=== PATIENT | female | born 1945 | race Caucasian/White ===

== ENCOUNTER 2017-03-20 08:24 | Outpatient (CLI) | payer MEDICARE, BC ==
--- OUTSIDE RECORDS SUMMARY | 2017-03-20 08:27 | XMS | Clinical Summary ---
:1945 Author Organization [facility] Address [address] [place] [address] Phone Care Team Providers Name Role Phone , Primary Care Provider Unavailable Allergies Not on File Current Medications Not on file Active Problems Not on file Social History Tobacco Use Types Packs/Day Years Used Date Never Assessed Sex Assigned at Date Recorded Not on file Last Filed Vital Signs Not on file Plan of Treatment Not on file Results Not on filefrom Last 3 Months
--- NOTE | 2017-03-21 14:36 | PET ---
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 COMPARISON: None. TECHNIQUE: IV injection F-18 Fluorodeoxyglucose (FDG) dose: 11.6 mCi Whole body PET and attenuation-correction CT performed from vertex of scalp to bottom of feet. FINDINGS: SUV (standard uptake value) numbers given are maximum SUV's: The approximately 12 x 9 x 6 mm noncalcified pulmonary nodule at the far anterior aspect of the supe rior segment of right lower lobe, abutting the undersurface of the right minor fissure, has avid FDG uptake, with SUV of 8.4. No other hypermetabolic pulmonary nodules are identified, but the other pu lmonary nodule at the posterior basilar segment left lower lobe on the CT of 03/03/17 would be too s mall for PET. There is no other focus of suspiciously hypermetabolic activity elsewhere in the chest, head, neck, and abdomen. There is a large exophytic cyst protruding inferiorly from the lower pole of the right kidney. There is a cluster of surgical clips in the right groin, adjacent to the right common femora l and proximal superficial femoral arteries and veins, associated with irregular soft tissue density material in this region. The maximum SUV is 2.3, mildly elevated compared to background activity, b ut below the threshold usually considered for malignancy. This is favored to represent postsurgical scar tissue. At midline in the region of the anus, there is a tiny focus of mildly increased uptake with maximum SUV of 3.3. This may or may not correspond to the site of the resected melanoma mention ed in the history. At the periphery of the images, there is a focus of increased uptake in the deep soft tissues betwee n the proximal aspects of the right radius and ulna with SUV of 3.4. No hypermetabolic foci identified in the bilateral lower extremities. There is a unilateral right-sided breast implant. IMPRESSION: 1. The 12 mm pulmonary nodule located in the superior segment of the right lower lobe is hypermetab olic, and suspicious for malignant neoplasm, either metastatic melanoma or primary lung cancer. Giulia noma metastasis is favored. 2. A focus of hypermetabolic activity in the proximal right forearm, near the elbow. Uncertain whet her this represents a metastatic focus or some type of inflammatory pathology. It does not appear to be artifact. Further evaluation with MRI of the proximal forearm is recommended with and without co ntrast. LUCIA Sharma POS: [facility]
== END 2017-03-20 08:25 | disposition home or self-care (01) ==
LOC: PET 08:24
PROVIDERS: ATTEND Internal Medicine Hematology & Oncology
DX: D03.5 Melanoma in situ of trunk (principal); R91.1 Solitary pulmonary nodule
CPT/HCPCS: 78816; A9552

== ENCOUNTER 2017-06-29 07:21 | Outpatient (CLI) | payer MEDICARE, BC ==
[2017-06-29] MEDS ORDERED: Iopamidol 370 76% 100 ML VIAL ONE (09:00)
--- NOTE | 2017-06-29 10:09 | CT ---
CT OF CHEST AND ABDOMEN AND PELVIS WITH CONTRAST: Date: 06/29/17 CLINICAL HISTORY: Melanoma. FINDINGS: Slight enlargement of pulmonary nodule of the right lower lobe at 13.0 mm in size. 11.0 mm on prior e xam. The previously described round, 5.0 mm, left lower lobe nodule is stable. There is a new lobular nodule of the medial right lower lobe measuring 6.0 mm. Punctate subpleural nodularity bilaterally i s otherwise grossly stable. No effusion. No evidence of adenopathy. Redemonstration of prominent size right renal cyst. Punctate hypoattenuating foci of each kidney are redemonstrated, too small to furt her characterize. Liver, spleen, pancreas, and adrenal glands are stable. Stable absence of right rec tus abdominus. There is colonic diverticulosis. No additional significant interval detrimental change . IMPRESSION: 1. Slight interval enlargement of dominant right lower lobe pulmonary nodule. 2. New subcentimeter medial right lower lobe nodule. 3. Stable 5.0 mm nodule left lower lobe. POS: [facility]
== END 2017-06-29 07:22 | disposition home or self-care (01) ==
LOC: SCSCT 07:21
PROVIDERS: ATTEND Internal Medicine Medical Oncology
DX: D03.5 Melanoma in situ of trunk (principal); R91.8 Other nonspecific abnormal finding of lung field; Z92.3 Personal history of irradiation; Z98.890 Other specified postprocedural states
CPT/HCPCS: 71260; 74177

== ENCOUNTER 2017-08-10 07:43 | Outpatient (CLI) | payer MEDICARE, BC ==
[2017-08-10] MEDS ORDERED: Iopamidol 370 76% 100 ML VIAL ONE (09:00)
--- NOTE | 2017-08-10 10:46 | CT ---
CT OF THE CHEST AND ABDOMEN AND PELVIS UTILIZING IV CONTRAST: Date: 08/10/17 INDICATION: History of melanoma with lung metastatic disease. COMPARISON: CT of the chest, abdomen and pelvis dated 06/29/17, 03/03/17, and 09/30/16. Comparison made with CT a bdomen and pelvis dated 08/27/11. Comparison also made with MRI of the thoracic spine dated 07/03/03. FINDINGS: The large subpleural pulmonary nodule within the right lower lobe on image 34 of series 5 now measure s 1.5 cm, where it measured up to 2.0 cm on the most recent comparison on 06/29/17. The previously documented nodule within the medial right lower lobe on image 53 of series 5 now measu res 9.0 mm, where as it previously measured 7.0 mm. Multiple smaller subcentimeter pulmonary nodules within the left lung are stable. Smaller subcentimet er nodules within the right upper lobe are stable. No new pulmonary nodules are identified. No pathologically enlarged mediastinal, hilar, or axillary lymphadenopathy is evident. Postsurgical c hange of prior bilateral mastectomy with right breast implant placement left breast free flap reconst ruction is stable to the prior exam. No focal hepatic lesion is evident. Small, 9.0 mm, left adrenal nodule has been stable since 2012 and is likely benign. There is a 6.9 cm cyst involving the lower pole of the right kidney, which is stab le. Small, subcentimeter cysts within both kidneys are stable. Spleen is normal. No lymphadenopathy o r free fluid is evident. Pancreas is unremarkable. Visualized unopacified large and small bowel reveal no definite acute abnormality. There is scattered colonic diverticula involving the colon. Visualized appendix appears within normal limits. Small bony hemangioma is present within T10. There is a small, focal, well circumscribed lucency with in the left lateral aspect of the T2 vertebra on image 10 of series 3 which has been stable since the CT evaluation of the chest, abdomen, and pelvis dated 09/30/16. This was also present on the PET CT evaluation of 03/20/17 with no associated hypermetabolic uptake. This may reflect a small subchondral cyst that has developed adjacent to the costovertebral articulation. No additional suspicious osteol ytic or osteoblastic lesion is identified. There is scattered degenerative and osteoarthritic change. IMPRESSION: 1. Findings of mixed response to therapy involving the scattered pulmonary metastatic lesions. The l argest index nodule within the right lower lobe has actually decreased in size, now measuring up to 1 5.0 mm. The small medial right lower lobe pulmonary nodule identified as a new lesion on the most rec ent comparison has slightly increased in size. Other subcentimeter pulmonary nodules within the remai tosha portions of the lung are stable. 2. No evidence of metastatic disease within the visualized abdomen. 3. Small oval well circumscribed lucency within the left lateral aspect of the T2 vertebra has been stable on multiple comparison examinations with no associated hypermetabolic uptake on a recent PET C T dated 03/20/17. This is likely a small, benign lucent lesion, possibly related to a subchondral cys t from the adjacent costovertebral joint. There is a benign-appearing bony hemangioma within T10. No suspicious osseous metastatic disease is evident. 4. Stable chronic findings as above. POS: [facility]
== END 2017-08-10 07:44 | disposition home or self-care (01) ==
LOC: SCSCT 07:43
PROVIDERS: ATTEND Internal Medicine Medical Oncology
DX: C78.00 Secondary malignant neoplasm of unspecified lung (principal); R91.8 Other nonspecific abnormal finding of lung field
CPT/HCPCS: 71260; 74177

== ENCOUNTER 2017-10-11 07:16 | Outpatient (CLI) | payer MEDICARE, BC ==
--- NOTE | 2017-10-11 09:49 | CT ---
CT CHEST WITH CONTRAST: Date: 10/11/17 HISTORY: D03.51, C78.0, lung mets. COMPARISON: CT chest, abdomen, and pelvis dated 08/10/17. FINDINGS: Unilateral right-sided breast implant is intact. Prior left flap reconstruction. Left axillary lymph nodes measure up to 7.0 mm in short axis, unchanged from the comparison examinati on. The previously described lytic process in the left T2 vertebral body is unchanged, likely benign process. Moderate degenerative changes of both glenohumeral joints. No other suspicious lytic or shane tic lesions in the skeleton. No compression fracture. No rib fracture. Left periaortic lymph nodes are similar in size. The nodule within the right major fissure measures up to 1.0 cm in transverse dimension, previously 1 5.0 mm. This is decreased in size. Nodule in the right lung base measures up to 14.0 mm in transverse dimension, previously 8.0 mm. Cluster of approximately four nodules in the left lung base are unchan ged. Mildly enlarging nodule within the anterior segment of the left lower lobe measuring up to 7.0 m m in transverse dimension, previously 5.0 mm. Left perifissural 3.0 mm nodule appears slightly increa sed in size. There is a solid nodule in the left upper lobe with a peripheral halo concerning for a h emorrhagic or metastatic focus, series 3, image 30. The solid component on today's examination measur es approximately 4.0 mm, previously approximately 3.0 mm. Perifissural nodule along the left major fi ssure near the apex is mildly increased in size. There is a nodule which is enlarging in the left irene g apex measuring 7.0 mm in transverse dimension, previously 3.0 mm. Right lung apex nodule appears ne w and measures 4.0 x 6.0 mm. None of these nodules, besides the dominant right major fissure nodule, have decreased in size. IMPRESSION: 1. Mixed response with interval size increase of numerous pulmonary nodules, although the largest no dule in the right major fissure actually decreasing in size and may represent a lymph node. 2. Unchanged appearance of benign lucent process in the left vertebral body. 3. No evidence of osseous metastatic disease. POS: [facility]
== END 2017-10-11 07:17 | disposition home or self-care (01) ==
LOC: SCSCT 07:16
PROVIDERS: ATTEND Internal Medicine Medical Oncology
DX: D03.5 Melanoma in situ of trunk (principal); C78.00 Secondary malignant neoplasm of unspecified lung; R91.8 Other nonspecific abnormal finding of lung field
CPT/HCPCS: 71260; 82565

== ENCOUNTER 2017-11-22 08:45 | Outpatient (CLI) | payer MEDICARE, BC ==
[2017-11-22] MEDS ORDERED: Iopamidol 370 76% 100 ML VIAL ONE (09:00)
--- NOTE | 2017-11-22 14:32 | CT ---
CT CHEST AND ABDOMEN AND PELVIS WITH IV CONTRAST: TECHNIQUE: Multiple axial tomograms were obtained through the chest, abdomen, and pelvis with IV enhancement. INDICATION: Melanoma of anus with right groin and lung mets. COMPARISON: Comparison is made to CT of chest and abdomen 08/10/17 and chest, abdomen, and pelvis 06/29/17. Also co mpared to a CT chest exam of 10/11/17. FINDINGS: CT CHEST: Numerous bilateral pulmonary nodules were again noted. In the right lung, these numerous nodules appear stable in appearance. An index nodule in the fissur e on the right is stable at approximately 1 cm in the axial plane. A larger nodule in the posterior right medial lung base is also stable measured at approximately 1.2 cm. A nodule in the left apical region measuring 7-8 mm appears stable. Another medial nodule in the lef t upper lobe measuring 6-7 mm is stable. There are other smaller scattered nodules with a 6 mm nodul e in the posterior left lung base, stable. Mediastinum unremarkable. The right breast prosthesis unchanged. There is an enlarged left axillary lymph node which measures 1.4 cm. This is a stable finding. There are other nonspecific axillary l ymph nodes bilaterally which are stable. No mediastinal adenopathy. No evidence of osseous lesion. IMPRESSION: Stable chest CT findings. CT ABDOMEN AND PELVIS: The liver, spleen, and pancreas are unremarkable. Adrenal glands and kidneys unremarkable. The larg e cyst from the inferior right kidney which measures up to 7 cm is stable. Bowel loops unremarkable. Diverticulosis of the sigmoid and left colon again noted. No evidence of adenopathy. Nonspecific paraaortic lymph nodes appear stable. Uterus and adnexa unremarkable. Degenerative changes at both hips again noted. No osseous lesion. Numerous surgical clips in the right inguinal region again noted. No inguinal adenopathy. IMPRESSION: Stable findings of CT abdomen and pelvis with no evidence of metastasis identified. POS: [facility]
== END 2017-11-22 08:46 | disposition home or self-care (01) ==
LOC: SCSCT 08:45
PROVIDERS: ATTEND Internal Medicine Medical Oncology
DX: C21.0 Malignant neoplasm of anus, unspecified (principal); C43.59 Malignant melanoma of other part of trunk; C78.00 Secondary malignant neoplasm of unspecified lung
CPT/HCPCS: 71260; 74177

== ENCOUNTER 2017-11-26 08:14 | Emergency (ER) | payer MEDICARE, BC ==
[2017-11-26 08:59] LABS: #Lymphocytes 1.5 thou/uL (1.20-3.40); #Monocytes 0.8 thou/uL (0.11-0.59); #Neutrophils 5.6 thou/uL (1.40-6.50); %Basophils 0.3 % (0.0-1.0); %Eosinophils 0.3 % (0.0-10.0); %Lymphocytes 18.7 % (21.0-51.0); %Monocytes 10.1 % (0.0-10.0); %Neutrophils 70.6 % (42.0-75.0); Hemoglobin 8.4 g/dL (12.0-16.0); Mean Corpuscular Hemoglobin 24.6 pg (27.0-31.0); Mean Corpuscular Volume 79.6 fl (81.0-99.0); Mean Platelet Volume 5.6 fL (7.4-10.4); Platelet Count 765 thou/uL (130-400); RBC Distribution Width 14.6 % (11.5-14.5); White Blood Cell (WBC) Count 7.9 thou/uL (4.8-10.8)
[2017-11-26 09:37] LABS: ALT (SGPT) 10 U/L (8-55); AST (SGOT) 16 U/L (5-34); Albumin 3.3 g/dL (3.4-4.8); Alkaline Phosphatase 152 U/L (40-150); Anion Gap 14 mmol/L (10-20); BUN (Urea Nitrogen) 18 mg/dL (9.8-20.1); Bilirubin, Total 0.2 mg/dL (0.2-1.2); Calc. Creatinine Clearance 0 mL/min (70-130); Calcium 8.9 mg/dL (7.8-10.44); Carbon Dioxide 20 mmol/L (23-31); Chloride 101 mmol/L (98-107); Estimated GFR-MDRD 56; Globulin 3.7 g/dL (2.4-3.5); Glucose 105 mg/dL (83-110); Sodium 131 mmol/L (136-145)
[2017-11-26 09:38] LABS: CKMB 0.6 ng/mL (0-6.6); Troponin I Less than 0.010 ng/mL (< 0.028)
--- NOTE | 2017-11-26 09:44 | ULT ---
BILATERAL LOWER EXTREMITY VENOUS DOPPLER ULTRASOUND: Date: 11/26/17 HISTORY: Bilateral lower extremity edema. Patient diagnosed with melanoma of the pelvis and had last immunothe rapy therapy 2 days ago. TECHNIQUE: Morton scale ultrasound with color flow and spectral Doppler imaging of the deep venous systems of the lower extremities was performed bilaterally. FINDINGS: There is good flow, compression, and augmentation noted in the common femoral, femoral, deep femoral, popliteal, posterior tibial, and greater saphenous veins on either side. IMPRESSION: No evidence of deep venous thrombosis in either lower extremity. POS: [facility]
== END 2017-11-26 10:06 | disposition home or self-care (01) ==
LOC: ERS 08:14
DX: R60.0 Localized edema (principal); F32.9 Major depressive disorder, single episode, unspecified; Z79.899 Other long term (current) drug therapy; Z79.82 Long term (current) use of aspirin
CPT/HCPCS: 36415; 80053; 82553; 83880; 84484; 85025; 93005; 93970

== ENCOUNTER 2018-01-07 07:45 | Day surgery (SDC) | payer MEDICARE, BC ==
[2018-01-07] MEDS ORDERED: diphenhydrAMINE 25 MG CAP PO SCH (08:30)
[2018-01-07] MEDS ORDERED: Furosemide 40 MG TAB PO SCH (08:30)
[2018-01-07] MEDS ORDERED: Acetaminophen 500 MG TAB PO SCH (08:30)
[2018-01-07 11:57] LABS: Hemoglobin 8.9 g/dL (12.0-16.0)
[2018-01-07 14:06] VITALS: BP 108/55; TEMP 97.4
== END 2018-01-07 14:07 | disposition home or self-care (01) ==
LOC: ONC/OP 07:45
PROVIDERS: ATTEND Internal Medicine Medical Oncology
DX: D64.9 Anemia, unspecified (principal); Z88.0 Allergy status to penicillin; Z88.8 Allergy status to other drugs, medicaments and biological substances
CPT/HCPCS: 36430; 85014; 85018; 86850; 86900; 86901; P9016

== ENCOUNTER 2018-01-21 07:22 | Outpatient (CLI) | payer MEDICARE, BC ==
--- NOTE | 2018-01-21 12:14 | CT ---
CT CHEST WITH IV CONTRAST: CT ABDOMEN WITH IV CONTRAST: CT PELVIS WITH IV CONTRAST: HISTORY: Melanoma with pulmonary metastases. Metastasis to the left axillary lymph node. Melanoma NC2 of dariusz skin. COMPARISON: 11/22/2017 FINDINGS: A right-sided breast prosthesis is again noted. The 14 mm lymph node in the left axilla is stable. A new 14 mm right axillary lymph node is seen, which previously measured about 10 mm. No mediastinal lymphadenopathy is noted. There is an 18 mm right hilar lymph node, which is new since the last exa m. No pleural or pericardial effusions are seen. Multiple bilateral parenchymal lung nodules are again noted. There has been an interval increase in the size of the right basilar nodule from 13 mm on the previous study to 18 mm on the current exam. The 7 mm nodule in the left upper lobe shows near complete resolution with residual linear density, l ikely scarring. The remainder of the pulmonary nodules are otherwise stable. The liver, spleen, pancreas, and adrenal glands are unremarkable. Bilateral renal cysts are again no greg, with the largest on the right, measuring 7 cm. No calcified gallstones are seen. No free air, free fluid, or periaortic lymphadenopathy is identified. There is sigmoid diverticulosi s. There is no evidence of aneurysmal dilatation of the thoracoabdominal aorta. There are degenerat madelin changes in the thoracolumbar spine. No osteolytic or osteoblastic lesions are seen. The right perianal prominent lymph nodes are stable. The right groin lymph node has enlarged in the interim, measuring 2.7 cm. IMPRESSION: Mixed response to therapy since 11/22/2017. POS: [facility]
== END 2018-01-21 07:23 | disposition home or self-care (01) ==
LOC: SCSCT 07:22
PROVIDERS: ATTEND Internal Medicine Medical Oncology
DX: D03.5 Melanoma in situ of trunk (principal); C78.00 Secondary malignant neoplasm of unspecified lung; C77.3 Secondary and unspecified malignant neoplasm of axilla and upper limb lymph nodes
CPT/HCPCS: 71260; 74177; 82565

== ENCOUNTER 2018-03-10 08:48 | Day surgery (SDC) | payer MEDICARE, BC ==
[2018-03-10] MEDS ORDERED: Sodium Chloride 0.9% 40 ML ONE (09:11)
[2018-03-10] MEDS ORDERED: diphenhydrAMINE 25 MG CAP PO SCH (09:15)
[2018-03-10] MEDS ORDERED: Acetaminophen 500 MG TAB PO SCH (09:15)
[2018-03-10 13:09] LABS: Hemoglobin 8.8 g/dL (12.0-16.0)
[2018-03-10 13:55] VITALS: TEMP 97.5
[2018-03-10 16:12] VITALS: BP 127/74
== END 2018-03-10 16:11 | disposition home or self-care (01) ==
LOC: ONC/OP 08:48
PROVIDERS: ATTEND Internal Medicine Medical Oncology
DX: D64.9 Anemia, unspecified (principal); D69.6 Thrombocytopenia, unspecified; Z88.1 Allergy status to other antibiotic agents
CPT/HCPCS: 36430; 85014; 85018; 86850; 86900; 86901; A4216; P9016

== ENCOUNTER 2018-04-23 13:27 | Inpatient (IN) | payer MEDICARE, BC ==
[2018-04-23] MEDS ORDERED: Morphine 4 MG/ML VIAL ONE (14:32)
[2018-04-23 15:30] LABS: #Eosinphils 0.1 thou/uL (0.0-0.7); #Monocytes 0.4 thou/uL (0.11-0.59); #Neutrophils 4.1 thou/uL (1.40-6.50); %Basophils 0.7 % (0.0-1.0); %Eosinophils 1.2 % (0.0-10.0); %Lymphocytes 29.8 % (21.0-51.0); %Monocytes 6.4 % (0.0-10.0); %Neutrophils 61.9 % (42.0-75.0); Hemoglobin 7.5 g/dL (12.0-16.0); Mean Corpuscular HGB CONC 30.5 g/dL (32.0-36.0); Mean Corpuscular Hemoglobin 25.5 pg (27.0-31.0); Mean Corpuscular Volume 83.6 fL (78.0-98.0); Mean Platelet Volume 5.9 fL (7.4-10.4); Platelet Count 675 thou/uL (130-400); RBC Distribution Width 16.7 % (11.5-14.5); Red Blood Cell (RBC) Count 2.93 mill/uL (4.20-5.40); White Blood Cell (WBC) Count 6.6 thou/uL (4.8-10.8)
[2018-04-23 15:37] LABS: INR-International Normal Ratio 1.1; PTT 39.5 SEC (22.9-36.1)
[2018-04-23 15:49] LABS: ALT (SGPT) 7 U/L (8-55); AST (SGOT) 10 U/L (5-34); Albumin 2.6 g/dL (3.4-4.8); Alkaline Phosphatase 59 U/L (40-150); Anion Gap 10 mmol/L (10-20); BUN (Urea Nitrogen) 21 mg/dL (9.8-20.1); Bilirubin, Total Less than 0.2 mg/dL (0.2-1.2); Calc. Creatinine Clearance 0 mL/min (70-130); Calcium 8.1 mg/dL (7.8-10.44); Carbon Dioxide 24 mmol/L (23-31); Chloride 110 mmol/L (98-107); Estimated GFR-MDRD 62; Globulin 3.1 g/dL (2.4-3.5); Glucose 80 mg/dL (83-110); Protein, Total 5.7 g/dL (6.0-8.3); Sodium 140 mmol/L (136-145)
--- NOTE | 2018-04-23 16:15 | RAD ---
LEFT FEMUR TWO VIEWS: 04/23/18 HISTORY: Pain. There is a displaced left femoral neck fracture. The fracture is more obliquely oriented and more of a subcapital type fracture. The femur is laterally displaced in relation to the femoral head. IMPRESSION: Left femoral neck fracture. POS: [facility]
--- NOTE | 2018-04-23 16:17 | RAD ---
CHEST ONE VIEW: 04/23/18 HISTORY: Preop femur fracture. The heart size is within normal limits. There are atherosclerotic changes of the aorta. The lungs are clear of infiltrates. The bones are demineralized. IMPRESSION: No active intrathoracic disease. POS: [facility]
[2018-04-23] MEDS ORDERED: Ondansetron PF 4 MG/2 ML Vial IVP PRN (17:51)
[2018-04-23] MEDS ORDERED: Dextrose 50% Abboject 50 ML SYRINGE SLOW IVP PRN (17:51)
[2018-04-23] MEDS ORDERED: hydrALAZINE 20 MG/ML VIAL SLOW IVP PRN (17:51)
[2018-04-23] MEDS ORDERED: Dextrose 5% in Water 1,000 ML IV PRN (17:51)
[2018-04-23] MEDS ORDERED: Ondansetron ODT 4 MG TAB PO PRN (17:51)
[2018-04-23] MEDS ORDERED: Morphine 2 MG/ML SYRINGE IVP PRN (17:51)
[2018-04-23] MEDS ORDERED: Acetaminophen 500 MG TAB PO SCH (18:00)
[2018-04-23] MEDS: Acetaminophen 1,000 MG in Premix Bag 1 BAG IVPB SCH (18:46)
[2018-04-23] MEDS: Ketorolac Tromethamine 30 MG/ML VIAL IVP SCH (18:47)
--- NOTE | 2018-04-23 19:56 | HP ---
DATE OF ADMISSION: 04/23/2018 REQUESTING PHYSICIAN: Dr. Begum. ATTENDING PHYSICIAN: Dr. Welch. CONSULTATIONS: Orthopedics, Dr. Colon. HISTORY OF PRESENT ILLNESS: The patient is a 73-year-old female who was transferred here from [facility] in [facility] after she presented there from falling the night before. She was able to self medicate overnight, but her pain became increasingly worse and she was unable to ambulate du e to left hip pain. The patient presented to the Emergency Department there where she underwent eval uation and examination and was noted to have a left subcapital hip fracture, at which time she was tr ansferred to our facility for evaluation for admission Orthopedic examination and of note, patient is an Oncology patient and suffers from chronic anemia and now due to her treatments and she also had a hemoglobin of 7.4. The patient denied any loss of consciousness last night or any syncopal type jessica nts. She states that she just "tripped and fell." ALLERGIES: CIPROFLOXACIN, LEVOFLOXACIN and METRONIDAZOLE. CURRENT MEDICATIONS: Zetia, Synthroid, Remeron, clonazepam, Pepcid, and vitamin E. PAST MEDICAL HISTORY: Metastatic melanoma, depression, hypothyroid. PAST SURGICAL HISTORY: Multiple biopsies and "cancer related surgeries," hemorrhoidectomy, thyroidec freddie, mastectomy and reconstruction surgeries. SOCIAL HISTORY: The patient lives at home with her . She ambulates normally without a walker . She denies drug, tobacco or alcohol use. REVIEW OF SYSTEMS: Ten point review of systems is negative as otherwise stated. PHYSICAL EXAMINATION: VITAL SIGNS: Blood pressure 132/85, heart rate 75, respirations 12, oxygen saturation 99% on room ai r. GENERAL: The patient is resting comfortably in bed. She is awake, alert, and oriented x3. Nomi coma scale 15. The patient does appear pale and somewhat emaciated. HEENT: Head is normocephalic, atraumatic. Eyes: Extraocular movements intact. PERRLA bilaterally. Ears are atraumatic without discharge. Nose is atraumatic without discharge. Oropharynx is clear. NECK: Nontender. Trachea is midline. No JVD. CHEST: Clear to auscultation with good inspiratory and expiratory effort. HEART: Regular rate and rhythm. ABDOMEN: Soft, flat, nontender with active bowel sounds. PELVIC: Stable. EXTREMITIES: The patient is tender to palpation to her left hip consistent with her fracture. The p atvanesa also has a mass lesion on her right groin area, which she states is one of her metastatic lesi ons of melanoma. EXTREMITIES: Neurovascularly intact x4. Capillary refill is less than 3 seconds. Pulses are 2+. BACK: By report is atraumatic and nontender. LABORATORY DATA: White blood cell count 6.6, hemoglobin 7.5, hematocrit 24.5, platelets 675. Sodium 140, potassium 4.0, chloride 110, CO2 24, BUN 21, creatinine 0.90, glucose 80. PT 14, INR 1.1 and P TT 40. RADIOGRAPHS: AP chest x-ray shows no active intrathoracic disease. Views of the left femur show a l eft femoral neck fracture. AP pelvis shows subcapital fracture of the left femoral neck. Views of t he knee show no acute fracture or dislocation. ASSESSMENT AND PLAN: 1. Status post ground level fall with delayed presentation. 2. Left subscapular hip fracture. 3. Metastatic melanoma. 4. Acute on chronic anemia. Plan will be to admit the patient to the surgical floor. We will transfuse her one unit of packed re d blood cells and have two units prepared for tomorrow for surgery. She will be made n.p.o. after mi dnight. We will have pain control, pulmonary toilet, gastritis, and mechanical VTE prophylaxis. The evaluation, examination, laboratory and radiographic findings will be discussed with Dr. Welch after this dictation. The patient was evaluated in the emergency department by Dr. Colon. She discuss ed plan of surgical intervention tomorrow morning.
[2018-04-23] MEDS: Famotidine 20 MG TAB PO SCH (21:56)
[2018-04-24] MEDS: Acetaminophen 1,000 MG in Premix Bag 1 BAG IVPB SCH ×2 (00:50→06:30)
[2018-04-24] MEDS: Ketorolac Tromethamine 30 MG/ML VIAL IVP SCH ×2 (00:50→06:30)
[2018-04-24] MEDS: Sodium Chloride 0.9% 1,000 ML IV SCH ×3 (00:50→15:06)
[2018-04-24 05:15] LABS: #Basophils 0.1 thou/uL (0.0-0.2); #Eosinphils 0.2 thou/uL (0.0-0.7); #Monocytes 0.4 thou/uL (0.11-0.59); #Neutrophils 4.4 thou/uL (1.40-6.50); %Basophils 1.2 % (0.0-1.0); %Eosinophils 2.8 % (0.0-10.0); %Lymphocytes 28.1 % (21.0-51.0); %Monocytes 5.8 % (0.0-10.0); %Neutrophils 62.1 % (42.0-75.0); Hemoglobin 7.8 g/dL (12.0-16.0); Mean Corpuscular HGB CONC 30.8 g/dL (32.0-36.0); Mean Corpuscular Hemoglobin 26.2 pg (27.0-31.0); Platelet Count 604 thou/uL (130-400); RBC Distribution Width 16.6 % (11.5-14.5); Red Blood Cell (RBC) Count 2.97 mill/uL (4.20-5.40); White Blood Cell (WBC) Count 7.1 thou/uL (4.8-10.8)
[2018-04-24 05:31] LABS: Anion Gap 9 mmol/L (10-20); BUN (Urea Nitrogen) 24 mg/dL (9.8-20.1); Calc. Creatinine Clearance 35 mL/min (70-130); Calcium 7.9 mg/dL (7.8-10.44); Carbon Dioxide 23 mmol/L (23-31); Chloride 109 mmol/L (98-107); Estimated GFR-MDRD 57; Glucose 83 mg/dL (83-110); Magnesium 1.7 mg/dL (1.6-2.6); Phosphorus 3.6 mg/dL (2.3-4.7); Potassium 4.8 mmol/L (3.5-5.1); Sodium 136 mmol/L (136-145)
--- NOTE | 2018-04-24 06:40 | CON ---
DATE OF CONSULTATION: 04/23/2018 REQUESTING PHYSICIAN: Dr. Jd Welch. HISTORY OF PRESENT ILLNESS: Patient is a 73-year-old lady, who was examined in the emergency room of [facility] with at bedside. She was recently transferred from the [facility] in [place]. She reports that earlier on the evening of admission, she sustained a ground level fa ll at home injuring her left hip. She presented to the emergency room where x-rays were obtained and demonstrated a subcapital femoral neck fracture of the left hip. As such, transferred to [facility] for admission and orthopedic care. The patient also has a history of melanoma with metastasis . She has had bouts of anemia as well and this may have contributed to her lightheadedness and synco pal type event. PAST MEDICAL HISTORY: Remarkable for metastatic melanoma, depression, hypothyroidism. PAST SURGICAL HISTORY: Includes thyroidectomy, mastectomy with reconstructive surgeries for unrelate d breast cancers, hemorrhoidectomy as well as biopsies from her melanoma. MEDICATIONS: At the time of admission include Zetia, Synthroid, Remeron, clonazepam, Pepcid, and vit marte E. ALLERGIES: To FLUOROQUINOLONES and FLAGYL. SOCIAL HISTORY: She lives in a private residence with her . She denies tobacco, alcohol, or drug use. She is a community ambulator. FAMILY HISTORY: Noncontributory. REVIEW OF SYSTEMS: Denies recent fevers, chills or sweats. Denies chest pain or shortness of breath currently. Denies numbness or tingling in lower extremity. PHYSICAL EXAMINATION: VITAL SIGNS: She is found to have a heart rate of 75, respiratory rate is 12, and blood pressure 132 /85. GENERAL: She is found to be a very cachectic, but pleasant 73-year-old who is awake and alert. HEENT: Atraumatic, normocephalic. HEART: Shows a regular rate and rhythm without murmur. LUNGS: Clear to auscultation bilaterally with good air movement. Chest wall nontender. ABDOMEN: Flat, nontender. PELVIS: Stable. EXTREMITIES: Remarkable for bilateral upper extremities with atraumatic shoulder, elbow, wrist, and hands. She has intact subjective sensation. The right lower extremity shows atraumatic hip, knee an d ankle with respect to any acute trauma. She does have a knee effusion and does have known degenera tive changes within this knee and has had aspirations performed in the past. The left lower extremit y remarkable for pain with any type of motion that begins in the groin and radiates down the leg. Th e knee has some mild effusion in it. The ankle and foot are atraumatic. She has intact subjective s ensation. LABORATORY DATA: She is found to have a white count of 6.6, hematocrit of 24.5 with 675,000 platele ts. Her INR is 1.1. X-RAYS: AP pelvis as well as AP lateral of the left femur remarkable for a displaced left femoral ne ck fracture. ASSESSMENT: Pleasant 73-year-old lady status post ground level fall sustaining a left subcapital fem oral neck fracture with a history of acute on chronic anemia and metastatic melanoma. PLAN: At this time, the patient is admitted to the Trauma Service. She will undergo a preoperative blood transfusion. Plan to proceed with hemiarthroplasty in the morning for the fracture. This even ing, I did discuss with the patient the risks and benefits of surgery. Risks include but are not springer ited to bleeding, infection, nerve injury, DVT, PE, loss of limb or life. Patient appears to underst and and does wish to proceed. Consent will be obtained prior to surgery.
[2018-04-24] MEDS ORDERED: CEFAZOLIN/Water 2 GM/20 ML SYRINGE SLOW IVP SCH ×2 (07:30→10:31)
[2018-04-24] MEDS ORDERED: Midazolam HCl 2 mg/2 ml Vial ONE (07:49)
[2018-04-24] MEDS ORDERED: Fentanyl 100 MCG/2 ML VIAL ONE (07:49)
[2018-04-24] MEDS ORDERED: CEFAZOLIN 2 GM/50 ML BAG ONE (07:56)
[2018-04-24] MEDS ORDERED: CEFAZOLIN 2 GM/50 ML-DEXTROSE 2 GM in Premix Bag 1 BAG IVPB SCH (08:15)
[2018-04-24] MEDS: Famotidine 20 MG TAB PO SCH ×2 (09:00→20:28)
[2018-04-24] MEDS ORDERED: Promethazine HCl 25 MG/ML VIAL IM PRN (09:32)
[2018-04-24] MEDS ORDERED: Ondansetron HCl/PF 4 MG/2 ML Vial IVP PRN (09:32)
[2018-04-24] MEDS ORDERED: Promethazine HCl 25 MG/ML VIAL SLOW IVP PRN (09:32)
--- NOTE | 2018-04-24 11:54 | RAD ---
LEFT HIP 2 VIEWS: HISTORY: Left hip fracture. FINDINGS/IMPRESSION: Interval postop changes of left humeral head prosthesis placement is seen in good position and alignm ent since the previous day's exam. POS: [facility]
--- NOTE | 2018-04-24 11:58 | OP ---
DATE OF PROCEDURE: 04/24/2018 PREOPERATIVE DIAGNOSIS: Left hip femoral neck fracture, subcapital. POSTOPERATIVE DIAGNOSIS: Left hip femoral neck fracture, subcapital. SURGICAL PROCEDURE: Left hip hemiarthroplasty. ANESTHESIA: General. SURGEON: Rowdy Colon M.D. FUSION ANALYST: Rico Singh and Tabitha Barroso MS4. IMPLANTS: DePuy system was used with a size 5 [place] stem, a 28 x 45 bipolar cup and a 28 +1.5 femor al head. COMPLICATIONS: None. DRAINS: None. SPECIMEN: Femoral head sent to Pathology to rule out pathologic fracture. OUTCOME: Stable hip. INDICATIONS: The patient is a 73-year-old lady with a history of malignant melanoma with metastasis. She was in her usual state of health which includes some weakness secondary to her chronic illness and treatment. While at home, she tripped and sustained a fall with a left femoral neck fracture. T he patient now to undergo hemiarthroplasty for pain control and to allow for mobility and ambulation. Today risks and benefits were discussed. The risks include, but are not limited to bleeding, infec tion, nerve injury, DVT, PE, loss of life or limb. The patient does appear to understand and wishes to proceed. PROCEDURE IN DETAIL: The patient was brought to the operating room and a timeout performed followed by induction of general anesthesia. Next, she was positioned in right lateral decubitus position and a sterile prep and drape was performed in the left lower extremity. Next, a curvilinear incision wa s made centered over the greater trochanter. After skin was sharply incised, dissection was carried down bluntly to the underlying tensor fascia and fascia lisa. This structure was incised in line wit h the skin incision and reflected anteriorly and posteriorly revealing the underlying greater trochan ter. The trochanteric bursa was released and swept posteriorly exposing the short external rotators. An elevator was passed between the interval of the abductors and the piriformis and then a cobra re tractor placed in this interval. Next, the piriformis superior and inferior gemelli were released fr om the posterior aspect of the femur tagged with a #2 Vicryl and reflected posteriorly. Next, a T ca psulotomy was performed. A T handle corkscrew device was then used to remove the femoral head. Next , an oscillating saw was used to perform a femoral neck cut. This was followed by removal of some lo ose bony fragments from both the acetabulum and around the femoral neck cut. Next, a T-box chisel wa s used to obtain a starting point proximal femur and then a T handle awl was passed down the canal of the femur. This was followed by insertion of a lateralizing reamer. Progressive T handle awls were passed down the canal up to a size 5, which gave good fit. Broaching was started at size 3 and continued up to size 5, which gave excellent fit, fill. A calcar reamer wa s then used to further smooth the bone around the stem trial. Next, a reduction was performed with a +1.5 head and a bipolar cup measuring 45 mm. This resulted in what felt to be equalization and norm alization of leg lengths and a very stable hip. Next, the hip was again dislocated and trial compone nts removed. Pulsavac with 5 liters of normal saline was irrigated through the acetabulum and proxim al femur. Next, the femoral stem was inserted without difficulty. Once inserted, the bipolar head w as assembled and inserted to the top of the stem. The hip was again reduced and brought into 90 degr ees of flexion and in the 90 degree flexed posture of the knee could be brought her to the leg could be brought into 75 degrees of internal rotation of thigh until some mild subluxation was felt at the hip itself. This was felt to be acceptable stability. As such, the leg was brought into extension a nd then closure performed. #2 Vicryl was used to reapproximate the joint capsule. This was followed by #2 Vicryl for reattachment of the short external rotators. A #2 Vicryl also used for the tensor fascia and fascia lisa followed by 0 Vicryl for Hal's fascia, 2-0 Vicryl subcutaneously, and stapl es for the skin. A Xeroform gauze and tape dressing was applied to the lateral thigh and then vianey costa was transferred to recovery room in stable condition. There were no complications and she tolerate d the procedure well. It should be noted that the femoral head was sent to pathology given patient's history of malignant melanoma.
[2018-04-24] MEDS: Acetaminophen 500 MG TAB PO SCH ×2 (12:08→17:02)
[2018-04-24 13:09] LABS: Hemoglobin 9.6 g/dL (12.0-16.0); Platelet Count 630 thou/uL (130-400)
[2018-04-24] MEDS ORDERED: Calcium Chloride 1 GM/10 ML Abboject SYRINGE ONE (14:41)
[2018-04-24] MEDS ORDERED: PROPOFOL 200 MG/20 ML VIAL ONE (14:41)
[2018-04-24] MEDS ORDERED: Glycopyrrolate 0.2 MG/ML 5 ML SYRINGE ONE (14:41)
[2018-04-24] MEDS ORDERED: ePHEDrine/0.9% NaCl/PF SYRINGE 50 mg/10 ml ONE (14:41)
[2018-04-24] MEDS ORDERED: Ondansetron PF 4 MG/2 ML Vial ONE (14:41)
[2018-04-24] MEDS ORDERED: Dexamethasone 20 MG/5 ML VIAL ONE (14:41)
[2018-04-24] MEDS ORDERED: PHENYLEPHRINE-NS 100 MCG/ML 10 ML SYRINGE ONE (14:41)
[2018-04-24] MEDS ORDERED: Lidocaine 1% PF 5 ML VIAL ONE (14:41)
[2018-04-24] MEDS: CEFAZOLIN 2 GM/50 ML-DEXTROSE 2 GM in Premix Bag 1 BAG IVPB SCH (15:05)
[2018-04-24] MEDS ORDERED: traMADol HCl 50 MG TAB PO PRN ×2 (15:40)
[2018-04-24] MEDS: Ibuprofen 600 MG TAB PO SCH (17:02)
[2018-04-24] MEDS: Pravastatin Sodium 20 MG TAB PO SCH (20:27)
[2018-04-24] MEDS: Mirtazapine 15 MG TAB PO SCH (20:28)
[2018-04-24] MEDS: clonazePAM 1 MG TAB PO SCH (20:28)
[2018-04-25] MEDS: CEFAZOLIN 2 GM/50 ML-DEXTROSE 2 GM in Premix Bag 1 BAG IVPB SCH (00:55)
[2018-04-25] MEDS: Acetaminophen 500 MG TAB PO SCH ×4 (00:56→16:59)
[2018-04-25] MEDS: Ibuprofen 600 MG TAB PO SCH ×3 (00:56→16:59)
[2018-04-25 05:32] LABS: #Lymphocytes 2.1 thou/uL (1.20-3.40); #Monocytes 0.6 thou/uL (0.11-0.59); #Neutrophils 6.2 thou/uL (1.40-6.50); %Basophils 0.4 % (0.0-1.0); %Eosinophils 0.4 % (0.0-10.0); %Lymphocytes 23.7 % (21.0-51.0); %Neutrophils 68.5 % (42.0-75.0); Hemoglobin 8.4 g/dL (12.0-16.0); Mean Corpuscular HGB CONC 31.4 g/dL (32.0-36.0); Mean Corpuscular Hemoglobin 26.8 pg (27.0-31.0); Mean Corpuscular Volume 85.2 fL (78.0-98.0); Platelet Count 608 thou/uL (130-400); RBC Distribution Width 16.4 % (11.5-14.5); Red Blood Cell (RBC) Count 3.14 mill/uL (4.20-5.40)
[2018-04-25 05:45] LABS: Anion Gap 9 mmol/L (10-20); BUN (Urea Nitrogen) 28 mg/dL (9.8-20.1); Calc. Creatinine Clearance 29 mL/min (70-130); Calcium 7.9 mg/dL (7.8-10.44); Carbon Dioxide 23 mmol/L (23-31); Chloride 110 mmol/L (98-107); Estimated GFR-MDRD 46; Glucose 95 mg/dL (83-110); Magnesium 1.5 mg/dL (1.6-2.6); Phosphorus 3.8 mg/dL (2.3-4.7); Potassium 4.7 mmol/L (3.5-5.1); Sodium 137 mmol/L (136-145)
[2018-04-25] MEDS ORDERED: Levothyroxine Sodium 100 MCG TAB PO SCH (06:00)
[2018-04-25] MEDS: Levothyroxine Sodium 112 MCG TAB PO SCH (06:26)
[2018-04-25] MEDS ORDERED: Magnesium 2 GM/50 ML 2 GM in Premix Bag 1 BAG IVPB SCH (08:15)
[2018-04-25] MEDS: Calcium Carbonate + Vit D 1 TAB PO SCH (08:44)
[2018-04-25] MEDS: Aspirin 81 mg Enteric Coated Tablet PO SCH ×2 (08:44→21:15)
[2018-04-25] MEDS: Saccharomyces boulardii 250 MG CAP PO SCH (08:44)
[2018-04-25] MEDS: Famotidine 20 MG TAB PO SCH (08:45)
[2018-04-25] MEDS: Vitami E (Dl,Tocopheryl Acet) 400 UNITS CAP PO SCH (08:45)
[2018-04-25 08:53] LABS: Iron 9 ug/dL (50-170); Iron Binding Capacity, Total 108 mcg/dL (265-497)
[2018-04-25] MEDS ORDERED: Levothyroxine Sodium 112 MCG TAB PO SCH (09:00)
--- NOTE | 2018-04-25 10:55 | PRG ---
DATE OF SERVICE: 04/25/2018 SUBJECTIVE: Ms. Randle is a 73-year-old woman who is post-injury day #2, status post ground level fall. She is postop day #1 today status post left hip hemiarthroplasty. She reports adequate pain c ontrol this morning. She is neurologically normal. She tolerates general diet. She has adequate ur inary output. OBJECTIVE: VITAL SIGNS: This morning includes blood pressure 121/72, pulse is 98, respiratory rate is 22, tempe rature 97.5 degrees Fahrenheit, oxygen saturation 97% on room air. HEENT: Reveals pupils equal, round, and reactive to light and accommodation. HEART: Reveals regular rate and rhythm, no murmurs or gallops auscultated. LUNGS: Clear to auscultation bilaterally. Her breathing is regular and unlabored. ABDOMEN: Soft, nontender, nondistended. Liver and spleen are nonpalpable below costal margin. EXTREMITIES: Reveals 2+ radial and pedal pulses bilaterally. No ankle edema is present. NEUROLOGIC: Reveals no focal deficits present. LABORATORY DATA: Today includes CBC with 9000 white blood cells, hemoglobin and hematocrit is 8.4 an d 26.8 respectively. Platelet count is 608,000. Metabolic profile: Sodium 137, potassium is 4.7, c hloride is 110, bicarbonate 23, BUN 28, creatinine is 1.15, glucose is 95. Magnesium 1.5, phosphorus 3.8. IMPRESSION: 1. Postoperative day #1 status post left hip hemiarthroplasty. 2. Chronic iron deficiency anemia. 3. Acute hypomagnesemia. PLAN: 1. Increase activity per physical and occupational therapy. The patient has been evaluated by PM&R for possible inpatient rehabilitation post-discharge. 2. We will initiate iron replacement therapy and vitamin C. 3. Pratt catheter will be discontinued and diet will be advanced. Above findings and plan discussed with the patient who indicates understanding of the information gianthony en. I have answered her questions.
[2018-04-25 14:12] VITALS: BMI 15.3
--- NOTE | 2018-04-25 14:45 | PQF ---
CLINICAL DOCUMENTATION IMPROVEMENT CLARIFICATION FORM: ICD-10 Updated PLEASE DO AN ADDENDUM TO THE PROGRESS NOTE WITH ANY DOCUMENTATION UPDATES OR ADDITIONS AND CARRY THROUGH TO DC SUMMARY. THANK YOU. Date: 04/25 ATTN: DR. IVANA HERNANDEZ Please exercise your independent, professional judgment in responding to the clarification form. Clinical indicators are provided on the bottom of this form for your review. Please check appropriate box(s): [ x ] Protein Calorie Malnutrition: [ ] Mild [x ] Moderate [ ] Severe [ ] Other Malnutrition (please specify) __ [ ] Underweight without malnutrition [ ] Cachexia [ ] Other diagnosis [ ] Unable to determine CLINICAL INDICATORS - SIGNS / SYMPTOMS / LABS BMI: 15.3 H&P 04/23: PHYSICAL EXAM: GENERAL: THE PATIENT DOES APPEAR PALE AND SOMEWHAT EMACIATED ORTHO CONS 04/23: PHYSICAL EXAM: GENERAL: SHE IS FOUND TO BE A VERY CACHECTIC... NUTRITION ASSESSMENT 04/25: SUBJECTIVE ASSESSMENT: ...SHE BEGAN LOSING WEIGHT 6 MONTHS AGO, ...SHE HAS SIGNIFICANT MUSCLE WASTING IN TEMPLES & HER CLAVICLE BONES ARE VISIBLE; -27% WEIGHT LOSS IN 6 MONTHS NUTRITION DIAGNOSIS: MALNUTRITION EVIDENCED BY -27% UNINTENDED WEIGHT LOSS IN 6 MONTHS; MUSCLE WASTING IN TEMPORAL & CLAVICLE AREAS; POOR PO INTAKE RISK FACTORS: METASTATIC MELANOMA POOR PO INTAKE MUSCLE WASTING TREATMENT: NUTRITION ASSESSMENT NUTRITIONAL SUPPLEMENT (SUPLENA BID STARTED 04/25) Moderate Malnutrition (in acute illness) Energy Intake: <75% of estimated energy requirement for > 7 days Weight Loss: 1-2%/1 week; 5%/ 1 month; 7.5%/3 months Other: mild body fat loss; mild muscle mass loss; mild fluid accumulation; Severe Malnutrition (in acute illness) Energy Intake: < 50% of estimated energy requirement for > 5 days Weight Loss: >1-2%/1 week; >5%/1 month; >7.5%/3 months Other: moderate body fat loss; moderate muscle mass loss; moderate- severe fluid accumulation; measurably reduced sr. consultant strength Moderate Malnutrition (in chronic illness) Energy Intake: <75% of estimated energy requirement for >1 month Weight Loss: 5%/1 month; 7.5%/3 months; 10%/6 months; 20%/1 year Other: mild body fat loss; mild muscle mass loss; mild fluid accumulation Severe Malnutrition (in chronic illness) Energy Intake: <75% of estimated energy requirement for >1 month Weight Loss: >5%/1 month; >7.5%/3 months; >10%/6 months; >20%/1 year Other: severe body fat loss; severe muscle mass loss; severe fluid accumulation; measurably reduced sr. consultant strength THANK YOU! Bree (This form is maintained as a part of the permanent medical record) 2014 [employer]. All Rights Reserved Bree Mckeon RN, BSN [email or web address] Office: [phone] [facility]
[2018-04-25] MEDS: Ferrous Sulfate 325 MG TAB PO SCH (16:52)
[2018-04-25] MEDS: Mirtazapine 15 MG TAB PO SCH (21:16)
[2018-04-25] MEDS: Pravastatin Sodium 20 MG TAB PO SCH (21:20)
[2018-04-25] MEDS: Ascorbic Acid 500 mg Chewable Tablet PO SCH (21:20)
[2018-04-25] MEDS: clonazePAM 1 MG TAB PO SCH (21:20)
[2018-04-26] MEDS: Ibuprofen 600 MG TAB PO SCH ×2 (02:44→08:10)
[2018-04-26] MEDS: Acetaminophen 500 MG TAB PO SCH ×4 (02:44→11:46)
[2018-04-26] MEDS: Levothyroxine Sodium 112 MCG TAB PO SCH ×2 (05:11→05:54)
[2018-04-26 06:07] LABS: #Basophils 0.1 thou/uL (0.0-0.2); #Eosinphils 0.3 thou/uL (0.0-0.7); #Lymphocytes 1.6 thou/uL (1.20-3.40); #Monocytes 0.4 thou/uL (0.11-0.59); %Basophils 0.8 % (0.0-1.0); %Eosinophils 3.5 % (0.0-10.0); %Lymphocytes 19.5 % (21.0-51.0); %Monocytes 4.2 % (0.0-10.0); Hemoglobin 8.2 g/dL (12.0-16.0); Mean Corpuscular HGB CONC 31.3 g/dL (32.0-36.0); Mean Corpuscular Hemoglobin 26.9 pg (27.0-31.0); Mean Corpuscular Volume 85.9 fL (78.0-98.0); Mean Platelet Volume 5.8 fL (7.4-10.4); Platelet Count 611 thou/uL (130-400); RBC Distribution Width 16.9 % (11.5-14.5); Red Blood Cell (RBC) Count 3.06 mill/uL (4.20-5.40); White Blood Cell (WBC) Count 8.4 thou/uL (4.8-10.8)
[2018-04-26] MEDS ORDERED: Magnesium 2 GM/50 ML 2 GM in Premix Bag 1 BAG IVPB SCH (06:30)
[2018-04-26 06:32] LABS: Anion Gap 9 mmol/L (10-20); BUN (Urea Nitrogen) 35 mg/dL (9.8-20.1); Calc. Creatinine Clearance 32 mL/min (70-130); Calcium 7.2 mg/dL (7.8-10.44); Carbon Dioxide 22 mmol/L (23-31); Chloride 110 mmol/L (98-107); Estimated GFR-MDRD 51; Glucose 88 mg/dL (83-110); Magnesium 1.8 mg/dL (1.6-2.6); Phosphorus 2.3 mg/dL (2.3-4.7); Potassium 4.1 mmol/L (3.5-5.1); Sodium 137 mmol/L (136-145)
[2018-04-26] MEDS ORDERED: Calcium Citrate 950 MG TAB PO SCH (07:00)
[2018-04-26] MEDS: Ascorbic Acid 500 mg Chewable Tablet PO SCH (08:09)
[2018-04-26] MEDS: Saccharomyces boulardii 250 MG CAP PO SCH (08:09)
[2018-04-26] MEDS: Aspirin 81 mg Enteric Coated Tablet PO SCH (08:09)
[2018-04-26] MEDS: Vitami E (Dl,Tocopheryl Acet) 400 UNITS CAP PO SCH (08:09)
[2018-04-26] MEDS: Ferrous Sulfate 325 MG TAB PO SCH (08:10)
[2018-04-26] MEDS: Calcium Carbonate + Vit D 1 TAB PO SCH (08:12)
[2018-04-26] MEDS ORDERED: Famotidine 20 MG TAB PO SCH (09:00)
--- NOTE | 2018-04-26 09:06 | HP ---
CHIEF COMPLAINT: Fall with left hip pain. HISTORY: The patient is a 73-year-old female who says that her house shoe got caught on a rug and sh e just tripped and fell, hitting the left hip, sustaining a fracture. No loss of consciousness. No other complaints. 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 PAST SURGICAL HISTORY: She has had a mastectomy. She has had a lumpectomy. She has had thyroidecto my and hemorrhoidectomy. MEDICATIONS: Synthroid, Remeron, clonazepam, Pepcid, Zetia. ALLERGIES: No known drug allergies. SOCIAL HISTORY: She is , retired. No tobacco or alcohol. FAMILY HISTORY: Noncontributory. PHYSICAL EXAMINATION: GENERAL: Very thin female, awake, alert, in no apparent distress. VITAL SIGNS: Temperature 98, pulse 80, blood pressure 109/69. LUNGS: Clear. HEART: Regular rate and rhythm. ABDOMEN: Soft, nondistended, nontender. She has had what appears to be an abdominoplasty. Pelvis n ontender. Bandage on her left hip. IMAGING DATA: X-ray shows left hip fracture. Chest x-ray: Unremarkable. ASSESSMENT: Left femoral neck fracture, displaced. PLAN: Per Orthopedics.
[2018-04-26 11:13] VITALS: BP 107/68; TEMP 97.8
--- NOTE | 2018-04-27 03:01 | DIS-2 ---
DATE OF ADMISSION: 04/23/2018. DATE OF DISCHARGE: 04/26/2018 RESIDENT: Demi Matt MD SUPERVISING ATTENDING: Umer Dickson DO CONSULTATIONS: Case management, PT/OT, Orthopedic Surgery. PROCEDURES: Left hip hemiarthroplasty. PRIMARY DIAGNOSIS: Left subcapital hip fracture, repaired. SECONDARY DIAGNOSES: Metastatic melanoma, depression, hypothyroidism, acute on chronic anemia. DISCHARGE MEDICATIONS: 1. Tylenol Extra Strength 500 mg oral every 4 hours as needed. 2. Vitamin E 400 units oral daily. 3. Calcium carbonate 1000 mg oral 4 times daily as needed. 4. Calcium carbonate plus vitamin D 2 tabs oral daily. 5. Clonazepam 1 tab oral at bedtime. 6. Mirtazapine 1.5 tab oral at bedtime. 7. Probiotics 1 each oral daily. 8. Vitamin D3 of 5000 units oral daily. 9. Pravastatin 20 mg oral at bedtime. 10. Levothyroxine sodium (Synthroid) 112 mcg oral daily. 11. Synthroid 100 mcg oral every other day. DISCONTINUED MEDICATIONS: None. HISTORY OF PRESENT ILLNESS/HOSPITAL COURSE: This is a 73-year-old female transferred here from [facility] in [facility] for left subcapital hip fracture. The patient reported falling and i njuring her left hip with inability to ambulate. Of note, patient is an Oncology patient suffers fro m chronic anemia and presented with a hemoglobin of 7.4. Patient denies any loss of consciousness or syncopal events with her fall. Due to the patient's chronic anemia, the patient was transfused 1 un it of PRBCs. Orthopedic Surgery consulted and hemiarthroplasty performed on 04/24/2018. The patient has remained pain controlled, she worked with PT/OT, has tolerated diet and is passing gas. She has had adequate urinary output. Electrolytes were replaced as needed. The patient was supplemented wi th vitamin C and iron. The patient was given the option of rehab, but she prefers to go home with [facility]. Rehab consult and information were given to the patient in case she changes her mind at a ny point. On the day of discharge, the patient was seen and examined by Dr. Dickson during morning [facility] nds. The plan was discussed with the patient and Dr. Dickson were in agreement. DISPOSITION: Stable. DISCHARGE INSTRUCTIONS: 1. Location: Home with home health. 2. Diet: Regular. 3. Activity: Activity restrictions per ortho/PT. 4. Follow up with Dr. Colon within 10 days, primary care provider, Dr. Lazaro within 2 weeks.
== END 2018-04-26 14:50 | disposition home health service (06) | DRG 470 ==
LOC: ERS 13:27 → SURG A 17:30
PROVIDERS: ADMIT Surgery; ATTEND Surgery
PROC: 0SRS0JZ Replacement of Left Hip Joint, Femoral Surface with Synthetic Substitute, Open Approach (ICD-10-PCS; principal; 2018-04-24)
DX: S72.012A Unspecified intracapsular fracture of left femur, initial encounter for closed fracture (principal); C79.9 Secondary malignant neoplasm of unspecified site; Z68.1 Body mass index [BMI] 19.9 or less, adult; E83.42 Hypomagnesemia; E03.9 Hypothyroidism, unspecified; W01.0XXA Fall on same level from slipping, tripping and stumbling without subsequent striking against object, initial encounter; Y92.009 Unspecified place in unspecified non-institutional (private) residence as the place of occurrence of the external cause; Z85.3 Personal history of malignant neoplasm of breast; Z79.899 Other long term (current) drug therapy; F32.9 Major depressive disorder, single episode, unspecified; D50.9 Iron deficiency anemia, unspecified
CPT/HCPCS: 36415; 36416; 36430; 71045; 80048; 80053; 82040; 82248; 82728; 83540; 83550; 83615; 83735; 84100; 84443; 84550; 85025; 85610; 85730; 86850; 86900; 86901; 88307; 88311; 88341; 88342; 93005; 96374; G0390; G8978-GP-CK; G8979-GP-CI; G8987-GO-CK; G8988-GO-CI; J0131; J1100; J1885; J2001; J2250; J2270; J2405; J2704; J3010; P9016

== ENCOUNTER 2018-05-13 12:36 | Inpatient (IN) | payer MEDICARE, BC ==
[2018-05-13] MEDS ORDERED: Acetaminophen 500 MG TAB PO SCH (12:45)
[2018-05-13] MEDS ORDERED: diphenhydrAMINE 25 MG CAP PO SCH (12:45)
[2018-05-13] MEDS ORDERED: Acetaminophen 325 MG TAB PO PRN (20:52)
[2018-05-13] MEDS ORDERED: Ondansetron ODT 4 MG TAB PO PRN (20:52)
[2018-05-13] MEDS ORDERED: Mirtazapine 15 MG TAB PO SCH (21:00)
[2018-05-13] MEDS ORDERED: Levothyroxine Sodium 100 MCG TAB PO SCH (21:00)
[2018-05-13] MEDS ORDERED: Pravastatin Sodium 20 MG TAB PO SCH (21:00)
[2018-05-13 21:09] LABS: #Basophils 0.1 thou/uL (0.0-0.2); #Eosinphils 0.1 thou/uL (0.0-0.7); #Lymphocytes 1.8 thou/uL (1.20-3.40); #Monocytes 0.6 thou/uL (0.11-0.59); %Basophils 1.3 % (0.0-1.0); %Eosinophils 1.9 % (0.0-10.0); %Lymphocytes 32.8 % (21.0-51.0); %Monocytes 9.9 % (0.0-10.0); %Neutrophils 54.2 % (42.0-75.0); Hemoglobin 8.6 g/dL (12.0-16.0); Mean Corpuscular HGB CONC 32.7 g/dL (32.0-36.0); Mean Corpuscular Hemoglobin 29.9 pg (27.0-31.0); Mean Corpuscular Volume 91.5 fL (78.0-98.0); Mean Platelet Volume 5.5 fL (7.4-10.4); Platelet Count 652 thou/uL (130-400); RBC Distribution Width 16.9 % (11.5-14.5); Red Blood Cell (RBC) Count 2.88 mill/uL (4.20-5.40); White Blood Cell (WBC) Count 5.5 thou/uL (4.8-10.8)
[2018-05-13 21:30] LABS: ALT (SGPT) Less than 7 U/L (8-55); AST (SGOT) 9 U/L (5-34); Albumin 2.5 g/dL (3.4-4.8); Alkaline Phosphatase 68 U/L (40-150); Anion Gap 12 mmol/L (10-20); BUN (Urea Nitrogen) 22 mg/dL (9.8-20.1); Bilirubin, Total 0.3 mg/dL (0.2-1.2); Calc. Creatinine Clearance 34 mL/min (70-130); Calcium 8.1 mg/dL (7.8-10.44); Carbon Dioxide 25 mmol/L (23-31); Chloride 106 mmol/L (98-107); Estimated GFR-MDRD 49; Globulin 2.6 g/dL (2.4-3.5); Glucose 96 mg/dL (83-110); Potassium 3.5 mmol/L (3.5-5.1); Protein, Total 5.1 g/dL (6.0-8.3); Sodium 139 mmol/L (136-145)
[2018-05-13 21:34] LABS: Troponin I 0.024 ng/mL (< 0.028)
--- NOTE | 2018-05-13 21:46 | CT ---
HEAD CT WITHOUT CONTRAST: HISTORY: Altered mental status. Generalized weakness. The patient has a history of lung neoplasm. COMPARISON: None. TECHNIQUE: A pre and post contrast head CT was ordered. The noncontrast images include the brain. The post con trast images are only 10 slices and include the short segment of the neck. Due to technical limitati ons, the post contrast images were not captured. FINDINGS: On noncontrast head CT, there is extensive vasogenic edema involving the cerebrum. Specifically, the re is edema in both frontal lobes and both temporal lobes. There is intrinsic hyperattenuation invol ving the left and right cerebrum, suggesting multifocal cortical metastatic lesions. The largest met astatic lesion appears to be in the right frontal lobe, measuring approximately 1.9 x 2.3 cm. There is minimal mass effect upon the right frontal lobe, with left to right subfalcine herniation of appro ximately 4 mm. [id number], the basilar cisterns are patent. Multiple lucent foci in the calvarium, suggesting multifocal osseous metastases. Adequate aeration o f the sinuses and mastoid air cells. IMPRESSION: 1. Post contrast images could not be obtained due to technical limitations. 2. Noncontrast images demonstrate multifocal brain parenchymal metastases. There is associated vaso genic edema of the cerebrum. There is a small amount of [id number] anterior subfalcine herniation . 3. Evidence for osseous metastases involving the calvarium. 4. Barring any contraindications, brain MRI can be performed, with and without intravenous Gadoliniu m administration. POS: [facility]
--- NOTE | 2018-05-13 22:38 | PDOC.EVN ---
Event Note - Event Note Event Note: ct showed multiple brain mets with vasogenic edema and likely the etiology for acute encephalopathy, discussed with Dr Cesar, who is pt's primary oncologist , we will place pt om decadron and go for palliative care given poor prognosis at this point due to extensive metastatic disease.
[2018-05-13] MEDS ORDERED: Dexamethasone 10 MG in Sodium Chloride 0.9% 50 ML IVPB SCH (23:00)
[2018-05-14] MEDS ORDERED: Lorazepam 2 MG/ML VIAL ONE (02:51)
[2018-05-14] MEDS ORDERED: Lorazepam 2 MG/ML VIAL SLOW IVP SCH ×2 (03:15→11:30)
[2018-05-14] MEDS ORDERED: Levothyroxine Sodium 112 MCG TAB PO SCH (06:00)
[2018-05-14] MEDS: Dexamethasone 4 MG in Sodium Chloride 0.9% 50 ML IVPB SCH ×4 (06:08→23:49)
[2018-05-14 06:42] LABS: #Monocytes 0.1 thou/uL (0.11-0.59); #Neutrophils 5.8 thou/uL (1.40-6.50); %Basophils 0.1 % (0.0-1.0); %Eosinophils 0.1 % (0.0-10.0); %Monocytes 1.5 % (0.0-10.0); %Neutrophils 83.3 % (42.0-75.0); Hemoglobin 8.9 g/dL (12.0-16.0); Mean Corpuscular HGB CONC 32.6 g/dL (32.0-36.0); Mean Corpuscular Hemoglobin 29.8 pg (27.0-31.0); Mean Corpuscular Volume 91.4 fL (78.0-98.0); Platelet Count 604 thou/uL (130-400); Red Blood Cell (RBC) Count 2.97 mill/uL (4.20-5.40)
[2018-05-14 07:10] LABS: Anion Gap 13 mmol/L (10-20); BUN (Urea Nitrogen) 22 mg/dL (9.8-20.1); Calc. Creatinine Clearance 37 mL/min (70-130); Calcium 8.4 mg/dL (7.8-10.44); Carbon Dioxide 25 mmol/L (23-31); Chloride 105 mmol/L (98-107); Estimated GFR-MDRD 54; Glucose 116 mg/dL (83-110); Potassium 3.8 mmol/L (3.5-5.1); Sodium 139 mmol/L (136-145)
[2018-05-14 08:02] VITALS: BMI 17.3
[2018-05-14] MEDS: levETIRAcetam In NaCl (Iso-Os) 1,000 MG in Premix Bag 1 BAG IVPB SCH ×2 (09:16→20:31)
[2018-05-14] MEDS: Lorazepam 2 MG/ML VIAL SLOW IVP PRN ×2 (11:44→23:48)
--- NOTE | 2018-05-14 12:01 | HP ---
DATE OF ADMISSION: 05/13/2018 CHIEF COMPLAINT: Anemia and confusion. HISTORY OF PRESENT ILLNESS: The patient is a 73-year-old female, who was sent yesterday [facility] Dr. Carrero's office because of a profound anemia with hemoglobin of 5.8. She was supposed to be transfused with 2 units of packed red blood cells. Apparently when she got to the floor directly [facility] his office, she was alert and oriented and during the second unit transfusion, she had shakiness, and later, she developed seizures. She was given Ativan and which stopped the seizures. The patient is stage 4 cancer with brain metastasis according to Dr. Carrero's information. Yesterday, Dr. Tessy bell talked to her and he made her DNR. We have quite limited information on this lady at t his point. ALLERGIES: CIPRO, LEVAQUIN and METRONIDAZOLE. PAST MEDICAL HISTORY: 1. Hypothyroidism. 2. Metastatic melanoma. 3. Recent left hip fracture. 4. Anemia. 5. Bilateral breast cancer with status post immunotherapy. PAST SURGICAL HISTORY: 1. Left hip hemiarthroplasty for left subcapital hip fracture. 2. Mastectomy. 3. Lumpectomy. 4. Thyroidectomy. 5. Hemorrhoidectomy. MEDICATIONS AT HOME: Pravastatin 20 mg at bedtime, mg tablets at bedtime, levothyroxine 112 mc g daily, clonazepam 1 tablet at bedtime, vitamin E 400 daily, calcium 1000 four times a day, calcium with vitamin D of unclear dosing plus acetaminophen p.r.n., this is not confirmed. REVIEW OF SYSTEMS: Unobtainable secondary to the patient's confusion and lack of good communication. PHYSICAL EXAMINATION: GENERAL: She is looking tired and comatose. She tries to follow my commands, but she quite of ten. VITAL SIGNS: Blood pressure is 105/86, pulse is 86, respiratory rate is 16, pulse oximetry 94% on ro om air, temperature is 98.0. HEENT: Head s atraumatic, normocephalic. Pupils are responding to light properly. Sclerae are joaquin cteric. Conjunctivae palish. Oral mucosa is somewhat dry. NECK: Supple. LUNGS: Clear. HEART: S1 and S2 normal. No S3, no S4. ABDOMEN: Soft, nontender, nondistended. EXTREMITIES: Left hip area, status post surgery with lito. Right lower extremity with 2+ periphe ral edema and left lower extremity with 1+ peripheral edema and those are pitting edema. NEUROLOGIC: As I mentioned above, she tries to follow my commands, but she is quite comatose. She i s able to move her 4 extremities. LABORATORY DATA: Hemoglobin yesterday was 8.6, today is 8.9; hematocrit 26.4 yesterday and 27.2 toda y. Platelet count 652,000 and 604,000 this morning. Chemistry: BUN 22, creatinine 1.01, glucose 11 6, albumin 2.5, alkaline phosphatase 68. The rest of chemistry within normal limits. IMAGING STUDIES: Brain CT was canceled. IMPRESSION: 1. Severe anemia requiring blood transfusion. 2. 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 3. Metastatic cancer to the brain. 4. Dehydration. 5. Status post thyroidectomy and hypothyroidism, post-surgical removal. 6. Status post recent pathological fracture of the left hip. 7. History of metastatic melanoma. PLAN: Admission to the hospital with transfusion of 2 units of packed red blood cells. We will star t her on Keppra IV 1000 mg q.12 hours. We will have Dr. Carrero on oncology consultation. We will continue p.r.n. Ativan. Apparently, Dr. Carrero discussed the case with her and she is DNR and she needs palliative care consult.
[2018-05-15] MEDS: Dexamethasone 4 MG in Sodium Chloride 0.9% 50 ML IVPB SCH ×2 (06:06→13:05)
[2018-05-15] MEDS: levETIRAcetam In NaCl (Iso-Os) 1,000 MG in Premix Bag 1 BAG IVPB SCH (09:11)
--- NOTE | 2018-05-15 16:05 | PRG ---
DATE OF SERVICE: 05/15/2018 SUBJECTIVE: The patient is seen and examined at the bedside. She is doing significantly better. He r mental condition improved, and she is able to even ambulate today with some assistance. We are cody iting for the speech therapist to evaluate her swallowing. OBJECTIVE: VITAL SIGNS: Blood pressure is 98/58, pulse 75, respiratory rate is 14, pulse oximetry is 95% on eduardo m air. HEENT: Atraumatic, normocephalic. Eyes: PERRLA. Sclerae are nonicteric. Conjunctivae somewhat pa jerrod. Oral mucosa is slightly dry. NECK: Supple, no lymphadenopathy. Thyroid is not palpable. LUNGS: Clear. HEART: S1, S2 normal. No S3, no S4. ABDOMEN: Soft, nontender, nondistended. EXTREMITIES: No clubbing, cyanosis, or edema. NEUROLOGIC: She follows my commands. She answers my questions quite properly. She is able to move all 4 extremities. LABORATORY DATA: None. ASSESSMENT: 1. Severe anemia requiring blood transfusion, status post blood transfusion x2 units. 2. Seizure secondary to brain metastases. The patient was started on Keppra IV. She did not have s eizures today anymore. 3. Metastatic cancer to the brain, melanoma is the primary. 4. Dehydration, improved. 5. Status post thyroidectomy and hypothyroidism, post-surgical removal. 6. Status post recent pathological fracture of the left hip. 7. History of metastatic melanoma. PLAN: The hospice was consulted yesterday. Yesterday, she qualified for the inpatient hospice, but today with her significant improvement, she qualifies only for outpatient hospice services at home. Will have swallow evaluation today and if she passes, we will start her on a diet and switch her to o ral Keppra and will continue IV dexamethasone. Apparently metastatic disease of melanoma to the brai n does not respond to brain radiation therapy, so this option is not recommended by Dr. Carrero. Ap parently, there is a problem with her who is disabled and is not able to help her much, but t he family is willing to work something out, hire somebody to help the patient after she is discharged from the hospital and tomorrow decision will be made about further steps and will continue current r egimen for now.
[2018-05-15] MEDS: Dexamethasone 4 MG TAB PO SCH (18:26)
[2018-05-15] MEDS: Lorazepam 2 MG/ML VIAL SLOW IVP PRN (19:56)
[2018-05-15] MEDS: levETIRAcetam 500 MG TAB PO SCH (20:36)
[2018-05-16] MEDS: Dexamethasone 4 MG TAB PO SCH ×3 (00:08→12:50)
[2018-05-16] MEDS ORDERED: Levothyroxine Sodium 112 MCG TAB PO SCH (06:00)
[2018-05-16 08:20] VITALS: BP 111/69; TEMP 97.4
[2018-05-16] MEDS: levETIRAcetam 500 MG TAB PO SCH (10:10)
--- NOTE | 2018-05-16 12:09 | PDOC.PN ---
- Subjective Encounter Start Date: 05/16/18 Encounter Start Time: 12:07 Ms. Randle was seen today in follow-up of metastatic cancer to th brain with seizure. She does not have any complaints this morning. - Objective Resuscitation Status: Resuscitation Status DNR:Do Not Resuscitate MAR Reviewed: Yes Vital Signs & Weight: Vital Signs (12 hours) Temp Pulse Resp BP Pulse Ox 05/16/18 08:18 97.4 F L 77 18 111/69 94 L Weight Admit Weight 101 lb Weight 101 lb I&O: 05/15/18 05/16/18 05/17/18 06:59 06:59 06:59 Intake Total 350 630 Balance 350 630 Result Diagrams: 05/14/18 05:22 05/14/18 05:22 Phys Exam - Physical Examination HEENT: PERRLA Respiratory: no wheezing, no rales, no rhonchi, clear to auscultation bilateral Cardiovascular: RRR, no significant murmur, no rub Gastrointestinal: soft, non-tender, no distention, positive bowel sounds Musculoskeletal: no edema Neurological: non-focal, moves all 4 limbs Dx/Plan (1) Seizure Code(s): R56.9 - UNSPECIFIED CONVULSIONS Status: Acute (2) Metastatic cancer to brain of unknown cell type Code(s): C79.31 - SECONDARY MALIGNANT NEOPLASM OF BRAIN Status: Acute - Plan * She has decided on Hospice care * This has been arranged * stable for discharge home..
--- NOTE | 2018-05-16 22:18 | DIS ---
DATE OF ADMISSION: 05/14/2018 DATE OF DISCHARGE: 05/16/2018 DISCHARGE DISPOSITION: Home with home hospice. DISCHARGE DIAGNOSES: 1. Seizure secondary to metastatic cancer to the brain. 2. Metastatic melanoma. 3. Acute anemia. 4. History of previous breast cancer. DISCHARGE MEDICATIONS: Include Keppra 1000 mg twice a day, pantoprazole 40 mg daily, Synthroid 112 m cg p.o. daily, Decadron 4 mg q.6 hours, pravastatin 20 mg at bedtime, Remeron 15 mg one and half tabl et at bedtime, clonazepam 1 mg at bedtime, vitamin D3 of 5000 units daily, vitamin D Caltrate 2 table ts daily, Tums 1000 mg q.i.d. as needed and Extra Strength Tylenol 500 mg q.4 hours as needed. PROCEDURES DONE DURING ADMISSION: The patient had a CT scan of the brain showing some vasogenic tonya a of the cerebrum and a small amount subfalcine herniation, evidence for osseous metastasis inc luding the calvarium. CODE STATUS: DNR. ALLERGIES: CIPROFLOXACIN, LEVOFLOXACIN and METRONIDAZOLE. HOSPITAL COURSE: Ms. Randle is a pleasant 73-year-old female, who presented to the emergency room with confusion. She was found to be anemic in Dr. Carrero's office and given 2 units of blood; conroy kailey, she began seizing and then was transferred to our facility for evaluation. She was found to hav e metastatic lesions by CT of the brain. Given the advanced nature of her cancer, the family has dec ided on forgoing palliative treatment with radiation and had decided on hospice care. They decided o n [facility] and she will be discharged later today on home hospice with [facility].
== END 2018-05-16 13:59 | disposition hospice, home (50) | DRG 55 ==
LOC: ONC/OP 12:36 → ONC 12:56 → ONC/OP 20:20 → ONC 20:20 → OBSVTOIN 05-14 00:05
PROVIDERS: ADMIT Hospitalist; ATTEND Hospitalist
PROC: 30233N1 Transfusion of Nonautologous Red Blood Cells into Peripheral Vein, Percutaneous Approach (ICD-10-PCS; principal; 2018-05-14)
DX: C79.31 Secondary malignant neoplasm of brain (principal); D64.9 Anemia, unspecified; R56.9 Unspecified convulsions; E86.0 Dehydration; C80.1 Malignant (primary) neoplasm, unspecified
CPT/HCPCS: 36415; 36430; 70460; 80048; 80053; 82248; 83615; 84100; 84443; 84484; 84550; 85025; 86850; 86900; 86901; G8996-GN-CI; G8997-GN-CI; J1100; J1953; J2060; J7050; J8540; P9016